=== PATIENT | male | born 1985 | race Caucasian/White ===

== ENCOUNTER → 2017-11-07 | Outpatient (CLI) | payer BC ==
--- NOTE | 2017-11-07 14:08 | XR ---
Lumbar spine HISTORY: Chronic back pain 3 views of the lumbar spine Lumbar vertebral bodies show preserved height, alignment, and bone mineralization. Suspect mild loss of disc height L5-S1. IMPRESSION: There may be disc desiccation, degenerative disc disease L5-S1, consider lumbar MRI.
--- NOTE | 2017-11-07 14:11 | XR ---
Scoliosis survey HISTORY: Chronic back pain 2 views of the thoracic and lumbar spine submitted on a total of 4 images There is a mild levoscoliosis centered at approximately T12 corresponding to approximately 5 degrees curvature. Thoracic and lumbar vertebral bodies show preserved height and bone mineralization. Disc s paces essentially maintained, there is some loss of disc height L5-S1. IMPRESSION: Mild scoliosis.
== END | disposition home or self-care (01) ==
LOC: RADXRMAIN 09:52
PROVIDERS: ATTEND Family Medicine
DX: M51.37 Other intervertebral disc degeneration, lumbosacral region (principal); M41.86 Other forms of scoliosis, lumbar region
CPT/HCPCS: 72082; 72100

== ENCOUNTER → 2018-11-26 | Outpatient (CLI) | payer BC ==
--- NOTE | 2018-11-26 08:15 | US ---
EXAMINATION TYPE: US abdomen complete DATE OF EXAM: 11/26/2018 COMPARISON: NONE CLINICAL HISTORY: R10.9 Abdominal pain. Intermittent right flank and back pain x couple months EXAM MEASUREMENTS: Liver Length: 17.1 cm Gallbladder Wall: 0.2 cm CBD: 0.4 cm Spleen: 12.9 cm Right Kidney: 11.0 x 5.3 x 5.8 cm Left Kidney: 11.0 x 5.1 x 5.2 cm Pancreas: visualized portions wnl, tail obscured by overlying midline bowel gas Liver: measures in upper limits of normal Gallbladder: wnl Evidence for sonographic Nieto's sign: no CBD: wnl Spleen: wnl Right Kidney: wnl Left Kidney: wnl Upper IVC: wnl Abd Aorta: wnl The liver is homogenous. The intrahepatic portion of the IVC and proximal abdominal aorta are within normal limits. There is no evidence of cholelithiasis. Common bile duct is unremarkable. The visu alized portions of the pancreas are homogenous. The spleen is unremarkable. Kidneys are symmetric a nd free of hydronephrosis. No renal lesions are seen. IMPRESSION: 1. No distinct abnormality seen.
== END ==
LOC: RADUSWWP 06:50
PROVIDERS: ATTEND Family Medicine
DX: R10.9 Unspecified abdominal pain (principal)
CPT/HCPCS: 76700

== ENCOUNTER → 2019-01-09 | Outpatient (CLI) | payer BC ==
--- NOTE | 2019-01-09 15:16 | NM ---
EXAMINATION TYPE: NM hepatobiliary w EF DATE OF EXAM: 01/09/2019 COMPARISON: Previous abdomen ultrasound 11/26/2018 HISTORY: Right upper quadrant pain TECHNIQUE: After the intravenous administration of 4.5 mCi Tc 99m Mebrofenin hepatobiliary scintigrap hy is performed. Immediate images post injection. FINDINGS: There is satisfactory initial accumulation of tracer by the liver. The gallbladder is visualized wit hin 6 minutes. The small bowel activity is noted within 8 minutes. At one hour 8 ounces of oral ens ure plus is given to mimic CCK and gallbladder ejection fraction is calculated at 86 %, above the nor mal range. Therefore there is no scintigraphic evidence of cystic or common bile duct obstruction to suggest acute cholecystitis or gallbladder dyskinesia. IMPRESSION: Findings could represent hyper dynamic gallbladder, no evident cholecystitis.
== END | disposition home or self-care (01) ==
LOC: RADNMMAIN 12:49
PROVIDERS: ATTEND Family Medicine
DX: R10.11 Right upper quadrant pain (principal)
CPT/HCPCS: 78226; A9537

== ENCOUNTER → 2019-06-28 | Outpatient (CLI) | payer BC ==
--- NOTE | 2019-06-28 11:48 | CT ---
EXAMINATION TYPE: CT abdomen pelvis w con DATE OF EXAM: 06/28/2019 COMPARISON: Ultrasound 11/26/2018 HISTORY: Generalized abdomen/flank pain, inflammation/loose stool x9 months CT DLP: 690.90 mGycm Automated exposure control for dose reduction was used. CONTRAST: CT scan of the abdomen pelvis is performed with IV Contrast, patient injected with 100 mL of Isovue 3 00. FINDINGS- LUNG BASES- No significant abnormality is appreciated. LIVER/GB- No gross abnormality is appreciated. PANCREAS- No gross abnormality is seen. SPLEEN- No gross abnormality is seen. Accessory spleen noted. ADRENALS- No gross abnormality is seen. KIDNEYS/BLADDER-there is mild prominence the renal collecting system bilaterally greater on the right correlate for mild right-sided hydronephrosis no definite renal calculi seen. No definite renal mass identified.. BOWEL-bowel gas pattern nonspecific with extensive retained fecal debris correlate for constipation t his limits assessment: Due to decompression, bowel content and lack of contrast.. Subcentimeter lucen t lesion involving the L1 vertebral body most typical small hemangioma.. LYMPH NODES- No greater than 1cm abdominal or pelvic lymph nodes areappreciated. OSSEOUS STRUCTURES- No significant abnormality is seen. OTHER- aorta of normal caliber. No free fluid or free air. IMPRESSION- 1. Mild bilateral prominence of the renal pelvis greater on the right may represent very mild bilater al hydronephrosis without evidence of distinct renal or ureteral calcification. This can occasionally also be seen with infectious etiology correlate with urinalysis.
== END | disposition home or self-care (01) ==
LOC: RADCTMAIN 09:22
PROVIDERS: ATTEND Surgery
DX: R10.9 Unspecified abdominal pain (principal)
CPT/HCPCS: 74177; Q9967 ×2

== ENCOUNTER → 2019-07-16 | Outpatient (CLI) | payer BC ==
[~2019-07-16] MED LIST: FUROSEMIDE 10 MG/ML 2 ML VIAL IV ONE
--- NOTE | 2019-07-16 09:46 | NM ---
EXAMINATION TYPE: NM lasix renogram DATE OF EXAM: 07/16/2019 COMPARISON: CT 06/28/2019 HISTORY: Right flank pain with hydronephrosis Following administration of 10.21 mCi Tc 99m MAG3 with 20mg Lasix. Immediate images post injection FINDINGS: Left: 48 %. Right: 52 %. Renal perfusion appears symmetric. Static renogram images demonstrate symmetric appearance of the kathleen al pelvis and ureter bilaterally. Satisfactory accumulation of radiotracer within both renal collecting systems. After the administrati on of Lasix, there is prompt excretion from both collecting systems. T 1/2 left: 15.6 minutes. T 1/2 right: 15.0 minutes. IMPRESSION: There is symmetric perfusion and excretion bilaterally.
== END ==
LOC: RADNMMAIN 07:44
PROVIDERS: ATTEND Urology
DX: N13.30 Unspecified hydronephrosis (principal); R10.9 Unspecified abdominal pain
CPT/HCPCS: 78708; A9562

== ENCOUNTER → 2019-08-12 | Outpatient (CLI) | payer BC | END | disposition home or self-care (01) | LOC: LABWHC1 06:33 → EDSTATUS 06:44 | PROVIDERS: ATTEND Internal Medicine | DX: R19.4 Change in bowel habit (principal) | CPT/HCPCS: 83993; 87328; 87329 ==

== ENCOUNTER 2019-08-18 09:51 | Day surgery (SDC) | payer BC ==
[2019-08-12 14:00] VITALS: BMI 25.0
[~2019-08-18 09:51] MED LIST changes: -FUROSEMIDE 10 MG/ML 2 ML VIAL IV ONE; +LIDOCAINE 1% 20 ML VIAL (10MG/ML) FOR IV START INTRADERMA PRN
[2019-08-18] MEDS: LACTATED RINGERS 1,000 ML IV SCH ×2 (10:19→10:49)
[2019-08-18 10:22] VITALS: TEMP 97.4
[2019-08-18] MEDS ORDERED: PROPOFOL 10 MG/ML 20 ML VIAL IV ONE (10:50)
--- NOTE | 2019-08-18 11:21 | P.PCN ---
Date of Procedure: 08/18/19 Description of Procedure: BRIEF HISTORY: 33-year-old male presenting for outpatient colonoscopy for evaluation of change in bowel habits. Patient reports right flank pain and abdominal pain over the past year. He is also noticed loosening of his stool over this time. He is now reporting 2-3 loose bowel movements with no signs or symptoms GI bleeding. Pain is present every day waxes and wanes in intensity. No family history of colon cancer or IBD. No nighttime symptoms. PROCEDURE PERFORMED: Colonoscopy with biopsy. PREOPERATIVE DIAGNOSIS: Change in bowel habits, no prior colonoscopy. ESTIMATED BLOOD LOSS: Minimal. IV sedation per Anesthesia. PROCEDURE: After informed consent was obtained, the patient, was brought into the endoscopy unit. IV sedation was administered by Anesthesia under continuous monitoring. Digital rectal examination was normal. Initially the Olympus CF-190 flexible video colonoscope was then inserted in the rectum, gradually advanced into the cecum without any difficulty. Careful examination was performed as the scope was gradually being withdrawn. Ileocecal valve and the appendiceal orifice were visualized and appeared normal., The terminal ileum was intubated and appeared normal with biopsies taken. Prep was excellent. Mucosa of the cecum, ascending colon, transverse colon, descending colon, sigmoid colon, and rectum appeared normal, with biopsies of the right left colon taken given altered bowel function. Retroflexion was performed in the rectum and no lesions were seen. The patient tolerated the procedure well. IMPRESSION: Normal-appearing colon from rectum to cecum, with biopsies of the right colon and left colon taken given altered bowel function. Normal-appearing terminal ileum, with biopsies taken given altered bowel function. RECOMMENDATIONS: Findings of this examination were discussed with the patient and his . Okay to resume diet. Okay to resume medications. Await pathology from biopsies. Follow up in gastroenterology clinic as previously scheduled. Recommend repeat colonoscopy at 45 for screening purposes pending pathology from biopsies.
[2019-08-18 11:28] VITALS: RESP 18
[2019-08-18 11:39] VITALS: BP 133/84; PULSE 56
== END 2019-08-18 11:58 | disposition home or self-care (01) ==
LOC: ORWHC2ENDO 09:51
PROVIDERS: ATTEND Internal Medicine
DX: R19.4 Change in bowel habit (principal); Z79.899 Other long term (current) drug therapy
CPT/HCPCS: 45380; J2704; 88305

== ENCOUNTER → 2024-12-18 | Outpatient (CLI) | payer BC ==
--- NOTE | 2024-12-18 13:37 | US ---
EXAMINATION TYPE: US axilla LT DATE OF EXAM: 12/18/2024 COMPARISON: NONE CLINICAL INDICATION: Male, 39 years old with history of R92.8 OTH ABN AND INCONCLUSIVE FINDINGS ON DX IMAG; Palpable and pain left axilla for 1-2 weeks TECHNIQUE: Grayscale imaging of the left axilla. FINDINGS: scanned area of concern left axilla, no significant fluid collection at this time. lymph node = 1.0 x 0.6cm No organizing fluid collection mass. IMPRESSION: No organizing fluid collection mass. Nonenlarged lymph node in the left axilla. [facility], , 12/18/2024 1:34 PM
== END | disposition home or self-care (01) ==
LOC: RADUSWWP 13:06
PROVIDERS: ATTEND Family Medicine
DX: R22.32 Localized swelling, mass and lump, left upper limb (principal)